=== PATIENT | female | born 1965 | race Two or more races ===

== ENCOUNTER 2024-01-18 06:19 | Inpatient (IN) | payer BC, OTHER ==
[2024-01-11 12:14] LABS: BILIRUBIN,URINE NEGATIVE (Neg); CLARITY,URINE CLEAR (Clear); COLOR,URINE YELLOW (Yellow); GLUCOSE, URINE >=1000 mg/dl (Neg); KETONES,URINE NEGATIVE (Neg); LEUKOCYTE ESTERASE ,URINE NEGATIVE (Neg); NITRITES, URINE NEGATIVE (Neg); OCCULT BLOOD,URINE LARGE (Neg); PH,URINE 5.5 (4.8-8.0); PROTEIN,URINE NEGATIVE (Neg); UROBILINOGEN,URINE 0.2 E.U/dL (0.2-1.0)
[2024-01-11 12:17] LABS: BASOPHILS % (AUTO) 0.5 % (0-1); EOSINOPHILS # (AUTO) 0.1 X10'3 (0-0.9); EOSINOPHILS % (AUTO) 1.8 % (0-6); LYMPHOCYTES % (AUTO) 16.5 % (21-51); MEAN CORPUSCULAR HEMOGLOBIN 29.7 PG (27.0-31.0); MEAN CORPUSCULAR HGB CONC 32.8 g/dL (33.0-36.5); MEAN CORPUSCULAR VOLUME 90.7 FL (78-98); MONOCYTES # (AUTO) 0.6 X10'3 (0-0.9); MONOCYTES % (AUTO) 9.7 % (2-12); NEUTROPHILS # (AUTO) 4.5 X10'3 (1.8-7.7); NEUTROPHILS % (AUTO) 71.5 % (42-75); PRE OP HEMATOCRIT 48.2 % (35.0-45.0); PRE OP HEMOGLOBIN 15.8 g/dL (12.0-16.0); PRE OP PLATELET COUNT 159 X10'3 (140-440); PRE OP WHITE BLOOD COUNT 6.3 10'3 (4.8-10.8); RED BLOOD COUNT 5.31 X10'6 (4.20-5.60); RED CELL DISTRIBUTION WIDTH 14.3 % (11.5-14.5)
[2024-01-11 12:21] LABS: UA COLLECTION TYPE CLN CATCH MIDSTREAM
[2024-01-11 12:22] LABS: WBC,URINE 0-4 /HPF (0-4)
[2024-01-11 12:23] LABS: BACTERIA,URINE FEW /HPF (Neg); RENAL CELLS, URINE FEW /HPF; SQUAMOUS EPITHELIAL CELL,UR FEW /LPF (FEW)
[2024-01-11 12:48] LABS: ALBUMIN 3.9 G/DL (3.4-5.0); ALKALINE PHOSPHATASE 123 IU/L (46-116); BLOOD UREA NITROGEN 23 MG/DL (7-18); BUN/CREATININE RATIO 20.4 (10.0-20.0); CALCIUM 8.5 MG/DL (8.5-10.1); CHLORIDE 107 MMOL/L (99-107); CREATININE 1.13 MG/DL (0.40-0.90); PRE OP ALT 31 U/L (30-65); PRE OP ANION GAP 10 (8-16); PRE OP AST 18 U/L (10-37); PRE OP BILIRUB, TOTAL 0.4 MG/DL (0.0-1.0); PRE OP GLUCOSE 95 MG/DL (70-104); PRE OP POTASSIUM 4.2 MMOL/L (3.4-5.1); PRE OP SODIUM 142 MMOL/L (135-145); TOTAL CARBON DIOXIDE 25.5 MMOL/L (24-32); TOTAL PROTEIN 7.8 G/DL (6.4-8.2); eGFR 50 ML/MIN
[~2024-01-18] VITALS: Ht 162.6 cm; Wt 94.5 kg
[2024-01-18] VITALS (22 sets, daily range): BP systolic 102–157; BP diastolic 62–98; PULSE 61–77; RESP 14–18; TEMP 97.9–98.3; O2SAT 93–99
[2024-01-18] MEDS: DOCUMENT DATE & TIME OF BETA-BLOCKER PO ONE (05:30)
[2024-01-18] MEDS: ceFOXitin 2GM-NS 100mL ADDvant 100 ML IV ONE (05:30)
[~2024-01-18 06:19] MED LIST: CARV6.2553 PO; DAPA10TA7 PO; FERR325T7 PO; FURO20TA4 PO; ROSU40TA89 PO; SPIR25TA5 PO
[2024-01-18] MEDS ORDERED: neomy sulf/polymyxin B sulf. GU irrigation 1ml amp IR ONE (06:35)
[2024-01-18] MEDS ORDERED: clindamycin phosphate 40gm vag cream ONE (06:35)
[2024-01-18] MEDS ORDERED: BUPIVAcaine 2.5mg/ml inj 50ml vial (contains preservative) ONE ×2 (06:35→07:46)
[2024-01-18] MEDS ORDERED: vasoPRESSIN 20 units/ml inj. ONE (06:35)
[2024-01-18] MEDS: ringers solution, lacted 1,000 ML IV SCH ×3 (07:25→12:10)
[2024-01-18] MEDS: famotidine 20mg tablet PO ONE (07:26)
[2024-01-18] MEDS ORDERED: sevoflurane 250ml liquid IH ONE (08:05)
[2024-01-18] MEDS ORDERED: midazolam 1 mg/ML 2ml injection ONE (08:11)
[2024-01-18] MEDS ORDERED: fentaNYL /PF 50mcg/ml 5ml ampule ONE (08:11)
[2024-01-18] MEDS ORDERED: propofol inj 20 ML IV ONE (08:28)
[2024-01-18] MEDS ORDERED: LIDOcaine 2% (20mg/ml) 5ml vial ONE (08:28)
[2024-01-18] MEDS ORDERED: rocuronium 10mg/ml inj IV ONE (08:28)
[2024-01-18] MEDS ORDERED: dexamethasone sod phosphate 4mg/ml inj. ONE (08:29)
[2024-01-18] MEDS ORDERED: acetaminophen 1,000mg/100ml IV 100 ML IV ONE (10:36)
[2024-01-18] MEDS ORDERED: meperidine/PF 50mg/ml syringe ONE (11:04)
[2024-01-18] MEDS ORDERED: morphine 2 MG/ML inj. syringe IV PRN (12:00)
[2024-01-18] MEDS ORDERED: proCHLORperazine 10 MG/2 ml inj IV PRN (12:00)
[2024-01-18] MEDS ORDERED: meperidine/PF 25mg/ml syringe IV PRN ×2 (12:00)
[2024-01-18] MEDS ORDERED: ondansetron/PF 4mg/2ml inj IV PRN (12:00)
[2024-01-18] MEDS ORDERED: enalaprilat dihydrate 2.5mg/2ml vial IV PRN (12:00)
[2024-01-18] MEDS ORDERED: labetalol 20mg/4ml (5mg/ml) syringe IV PRN (12:00)
[2024-01-18] MEDS ORDERED: albumin (Human) 5% 250ml 250 ML IV ONE (12:03)
[2024-01-18] MEDS ORDERED: normal saline 500ml IV soln 500 ML IV PRN (12:10)
[2024-01-18] MEDS ORDERED: LORazepam 2 mg/ml vial IV PRN (12:10)
[2024-01-18] MEDS ORDERED: magnesium hydroxide 30ml (MOM) UD suspension PO PRN (12:10)
[2024-01-18] MEDS ORDERED: diphenhydrAMINE 50 mg/ml inj IV PRN (12:10)
[2024-01-18] MEDS ORDERED: metoclopramide 5 mg/ml inj IV PRN (12:10)
[2024-01-18] MEDS ORDERED: temazepam 15mg capsule PO PRN (12:10)
[2024-01-18] MEDS ORDERED: HYDROcodone/acetaminophen 10/325mg tab PO PRN ×2 (12:10)
[2024-01-18] MEDS: meperidine/PF 25mg/ml syringe IV PRN (14:12)
[2024-01-18] MEDS: morphine 4 MG/ML inj SYRINge IV PRN (14:43)
[2024-01-18] MEDS: docusate sod 100mg capsule PO SCH (19:52)
[2024-01-18] MEDS: carvedilol 6.25mg tablet PO SCH (19:52)
[2024-01-18] MEDS: ondansetron/PF 4mg/2ml inj IV PRN (19:53)
[2024-01-18] MEDS: ketorolac trometh 30MG/ML vial 30 MG/ML VIAL IV PRN (19:53)
[2024-01-19 00:24] VITALS: RESP 20; O2SAT 99
[2024-01-19 02:45] VITALS: BP_SYST 113; BP_SYST 124; BP_DIAS 71; BP_DIAS 79; PULSE 82; RESP 18; TEMP 98.2; O2SAT 98
[2024-01-19 05:57] LABS: BASOPHILS % (AUTO) 0.2 % (0-1); EOSINOPHILS % (AUTO) 0 % (0-6); HEMATOCRIT 40.8 % (35.0-45.0); HEMOGLOBIN 13.6 g/dl (12.0-16.0); LYMPHOCYTES # (AUTO) 0.6 X10'3 (1.1-4.8); MEAN CORPUSCULAR HEMOGLOBIN 29.9 PG (27.0-31.0); MEAN CORPUSCULAR HGB CONC 33.3 g/dL (33.0-36.5); MEAN CORPUSCULAR VOLUME 89.8 FL (78-98); MEAN PLATELET VOLUME 9.6 FL (7.4-10.4); MONOCYTES # (AUTO) 0.9 X10'3 (0-0.9); MONOCYTES % (AUTO) 9.2 % (2-12); NEUTROPHILS # (AUTO) 8.6 X10'3 (1.8-7.7); NEUTROPHILS % (AUTO) 84.6 % (42-75); PLATELET COUNT 147 X10'3 (140-440); RED BLOOD COUNT 4.54 X10'6 (4.20-5.60); WHITE BLOOD COUNT 10.1 X10'3 (4.5-11.0)
[2024-01-19 06:00] VITALS: BP 119/73; PULSE 72; RESP 16; TEMP 97.3; O2SAT 97
[2024-01-19 06:00] LABS: ANION GAP 8 (8-16); BLOOD UREA NITROGEN 22 MG/DL (7-18); BUN/CREATININE RATIO 22.2 (10.0-20.0); CALCIUM 8.1 MG/DL (8.5-10.1); CHLORIDE 108 MMOL/L (99-107); CREATININE 0.99 MG/DL (0.40-0.90); GLUCOSE 132 MG/DL (70-104); POTASSIUM 4.6 MMOL/L (3.5-5.1); SODIUM 140 MMOL/L (135-145); TOTAL CARBON DIOXIDE 23.6 MMOL/L (24-32); eCRCL 54 ML/MIN; eGFR 58 ML/MIN
[2024-01-19 10:00] VITALS: BP 113/60; PULSE 77; RESP 16; TEMP 96.9; O2SAT 97
== END 2024-01-19 13:30 | disposition home or self-care (01) | DRG 743 ==
LOC: PAS 06:19 → SUR 3N 12:09 → UNDOADMIN 15:13
PROVIDERS: ADMIT Obstetrics & Gynecology Obstetrics; ATTEND Obstetrics & Gynecology Obstetrics
PROC: 0UT90ZZ Resection of Uterus, Open Approach (ICD-10-PCS; principal; 2024-01-19)
PROC: 0UJD4ZZ Inspection of Uterus and Cervix, Percutaneous Endoscopic Approach (ICD-10-PCS; 2024-01-19)
PROC: 0UT70ZZ Resection of Bilateral Fallopian Tubes, Open Approach (ICD-10-PCS; 2024-01-19)
PROC: 0UT20ZZ Resection of Bilateral Ovaries, Open Approach (ICD-10-PCS; 2024-01-19)
DX: D25.9 Leiomyoma of uterus, unspecified (principal); Z53.31 Laparoscopic surgical procedure converted to open procedure
CPT/HCPCS: Z7506; Z7508; 36415; 71046; 80048; 80053; 81001; 82948; 85025; 86885; 86900; 86901; 86920; 87081; A4314; A4618; A6449; A7000; G0378; J0131; J0694; J1100; J1885; J2003; J2175; J2250; J2270; J2405; J2704; J3010; J3490; J7120; P9045